=== PATIENT | male | born 1975 | race Caucasian/White ===

== ENCOUNTER 2016-07-29 01:49 | Emergency (ER) | payer MEDICARE, MEDICAID ==
[~2016-07-29] VITALS: Ht 170.2 cm; Wt 63.5 kg
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
[2016-07-29 02:54] VITALS: BP_SYST 1; BP_SYST 129; BP_DIAS 1; BP_DIAS 83
== END 2016-07-29 02:51 | disposition home or self-care (01) ==
LOC: EMR 02:05
DX: S01.01XA Laceration without foreign body of scalp, initial encounter (principal); Y04.2XXA Assault by strike against or bumped into by another person, initial encounter; Y93.9 Activity, unspecified; Y92.9 Unspecified place or not applicable; Z88.0 Allergy status to penicillin